=== PATIENT | female | born 1960 | race Caucasian/White ===

== ENCOUNTER 2020-10-23 06:40 | Day surgery (SDC) | payer MEDICAID, SELFPAY ==
[~2020-10-23] VITALS: Ht 162.6 cm; Wt 48.1 kg
[2020-10-23] MEDS ORDERED: MEPERIDINE 100 MG INJ. 100 MG/ML VIAL ONE (08:17)
[2020-10-23] MEDS ORDERED: MIDAZOLAM HCL 5 MG/5 ML VIAL ONE (08:17)
[2020-10-23] MEDS ORDERED: DIPHENHYDRAMINE INJ 50 MG/ML VIAL ONE (08:18)
[2020-10-23] MEDS ORDERED: SIMETHICONE 40 MG/0.6 ML ML ONE (08:18)
[2020-10-23] MEDS ORDERED: BENZOCAINE 20% 0.5mL UD SPRAY MM ONE (08:23)
[2020-10-23 13:59] VITALS: BP_SYST 126
== END 2020-10-23 10:15 | disposition home or self-care (01) ==
LOC: SMU 06:40 → SDS 06:40
PROVIDERS: ATTEND Internal Medicine
DX: R10.13 Epigastric pain (principal); K31.7 Polyp of stomach and duodenum; K29.50 Unspecified chronic gastritis without bleeding; R19.4 Change in bowel habit; J45.909 Unspecified asthma, uncomplicated; I10 Essential (primary) hypertension; Z79.899 Other long term (current) drug therapy
CPT/HCPCS: 36415; 43239; 43251; 87426; 88305; 88312; 88313; 99152; J2175; J2250; J1200

== ENCOUNTER 2021-01-13 07:15 | Day surgery (SDC) | payer MEDICAID, SELFPAY ==
[~2021-01-13] VITALS: Ht 162.6 cm; Wt 43.1 kg
[2021-01-13] MEDS ORDERED: MIDAZOLAM HCL 5 MG/5 ML VIAL ONE (09:02)
[2021-01-13] MEDS ORDERED: SIMETHICONE 40 MG/0.6 ML ML ONE (09:02)
[2021-01-13] MEDS ORDERED: MEPERIDINE 100 MG INJ. 100 MG/ML VIAL ONE (09:02)
[2021-01-13 12:19] VITALS: BP_SYST 166
== END 2021-01-13 11:20 | disposition home or self-care (01) ==
LOC: SDS 07:15 → SMU 07:21 → SDS 11:20
PROVIDERS: ATTEND Internal Medicine
DX: R19.4 Change in bowel habit (principal); R19.7 Diarrhea, unspecified; D12.8 Benign neoplasm of rectum; K64.8 Other hemorrhoids; Z20.822 Contact with and (suspected) exposure to COVID-19; Z79.899 Other long term (current) drug therapy
CPT/HCPCS: 45380; 45385; 88305; 99152; 99153; G0378; J2175; J2250; U0003